=== PATIENT | female | born 1955 | race African-American/Black ===

== ENCOUNTER 2017-07-24 12:57 | Emergency (ER) | payer SELFPAY ==
[~2017-07-24] VITALS: Ht 162.6 cm; Wt 77.0 kg
[2017-07-24] MEDS ORDERED: ACETAMINOPHEN 500MG TABLET PO ONE (15:15)
[2017-07-24 15:18] VITALS: BP 159/94
== END 2017-07-24 16:46 | disposition home or self-care (01) ==
LOC: ER 12:57
DX: J10.1 Influenza due to other identified influenza virus with other respiratory manifestations (principal); I10 Essential (primary) hypertension
CPT/HCPCS: 71010; 87804; 93005; 99285

== ENCOUNTER 2018-09-10 22:04 | Emergency (ER) | payer OTHER ==
[~2018-09-10] VITALS: Ht 160 cm; Wt 81.8 kg
[2018-09-10 23:19] VITALS: BP 158/90
== END 2018-09-11 03:00 | disposition left against medical advice (07) ==
LOC: ER 22:04
DX: Z53.21 Procedure and treatment not carried out due to patient leaving prior to being seen by health care provider (principal)